=== PATIENT | female | born 1985 | race Caucasian/White ===

== ENCOUNTER → 2016-05-30 | Outpatient (CLI) | payer OTHER ==
[~2016-05-30] MED LIST: HYDR-5688 PO; OXYC-57 PO; PRED50TA PO
[2016-05-30 15:58] LABS: URINE APPEARANCE CLEAR (CLEAR); URINE BILIRUBIN NEG (NEG); URINE COLOR YELLOW; URINE NITRITE NEG (NEG); URINE PH 7.5 (4.5-7.5); URINE SPECIFIC GRAVITY 1.014 (1.000-1.030); UROBILINOGEN NEG (NEG)
[2016-05-30 16:07] LABS: MANUAL MICROSCOPIC REQUIRED? NO; REVIEW REQ? NO
[2016-05-30 16:39] LABS: BASO % 0.2 %; BASO ABS # 0.02 K/uL (0-0.2); COMPLETE YES; EOS % 3.2 %; HEMATOCRIT 38.8 % (37-47); IG% 0.1 %; LYMPH % 24.3 %; LYMPH ABS # 2.31 K/uL (1.2-3.4); MEAN CELL VOLUME 98.5 fL (80-100); MEAN CORPUSCULAR HEMOGLOBIN 33.2 pg (25-34); MEAN CORPUSCULAR HGB CONC 33.8 g/dl (32-36); MONO % 3.4 %; NEUT % 68.8 %; PLATELET COUNT 266 K/uL (130-400); RED BLOOD COUNT 3.94 M/uL (4.2-5.4)
[2016-05-30 16:48] LABS: BLOOD UREA NITROGEN 9 mg/dl (7-18); BUN/CREATININE RATIO 15.2 (10-20); CALCIUM 9.1 mg/dl (8.5-10.1); CARBON DIOXIDE 27 mmol/L (21-32); CHLORIDE 108 mmol/L (98-107); CREATININE 0.59 mg/dl (0.60-1.20); GLUCOSE 79 mg/dl (70-99); PHOSPHORUS 3.1 mg/dl (2.5-4.9); SODIUM 142 mmol/L (136-145)
== END | disposition home or self-care (01) ==
LOC: C.LAB1850 14:33
PROVIDERS: ATTEND Obstetrics & Gynecology
DX: G89.18 Other acute postprocedural pain (principal); R10.2 Pelvic and perineal pain

== ENCOUNTER → 2016-07-25 | Outpatient (CLI) | payer OTHER ==
[2016-07-25 12:21] LABS: BASO % 0.4 %; BASO ABS # 0.03 K/uL (0-0.2); COMPLETE YES; EOS % 1.9 %; HEMATOCRIT 40.6 % (37-47); IG% 0.1 %; LYMPH % 30.9 %; LYMPH ABS # 2.17 K/uL (1.2-3.4); MEAN CELL VOLUME 97.6 fL (80-100); MEAN CORPUSCULAR HEMOGLOBIN 33.2 pg (25-34); MEAN PLATELET VOLUME 11.5 fL (7.4-10.4); NEUT % 62.7 %; PLATELET COUNT 307 K/uL (130-400); RED BLOOD COUNT 4.16 M/uL (4.2-5.4); WHITE BLOOD COUNT 7.02 K/uL (4.8-10.8)
[2016-07-25 12:43] LABS: BLOOD UREA NITROGEN 17 mg/dl (7-18); BUN/CREATININE RATIO 28.2 (10-20); CARBON DIOXIDE 25 mmol/L (21-32); CHLORIDE 109 mmol/L (98-107); GLUCOSE 91 mg/dl (70-99); POTASSIUM 3.9 mmol/L (3.5-5.1); SODIUM 141 mmol/L (136-145)
[2016-07-25 12:46] LABS: ALKALINE PHOSPHATASE 66 U/L (45-117); ALT/SGPT 22 U/L (12-78); AST/SGOT 11 U/L (15-37); C-REACTIVE PROTEIN < 0.29 mg/dl (0-0.29)
[2016-07-25 18:21] LABS: URINE APPEARANCE CLEAR (CLEAR); URINE BILIRUBIN NEG (NEG); URINE COLOR YELLOW; URINE EPITHELIAL CELL AUTO >30 /lpf (0-5); URINE NITRITE NEG (NEG); URINE PH 5.5 (4.5-7.5); URINE SPECIFIC GRAVITY 1.025 (1.000-1.030); UROBILINOGEN NEG (NEG); ZZUR CULT IF INDIC CLEAN CATCH YES
[2016-07-25 18:27] LABS: MANUAL MICROSCOPIC REQUIRED? NO; REVIEW REQ? NO
== END | disposition home or self-care (01) ==
LOC: C.LABBFT 11:28
PROVIDERS: ATTEND Nurse Practitioner
DX: R10.84 Generalized abdominal pain (principal); R19.7 Diarrhea, unspecified

== ENCOUNTER → 2016-08-01 | Outpatient (CLI) | payer OTHER ==
--- NOTE | 2016-08-01 09:10 | DIAGNOSTIC IMAGING REPORT ---
ABDOMINAL ULTRASOUND, RIGHT UPPER QUADRANT HISTORY: Right upper quadrant abdominal pain.. COMPARISON: Abdomen and pelvis CT 06/24/2009. FINDINGS: Pancreas: The pancreas demonstrates a normal echotexture. Liver: Unremarkable. Gallbladder: No gallbladder wall thickening. No gallstones. CBD: 4 mm. Right kidney: No hydronephrosis. IMPRESSION: No significant abnormality identified within the right upper quadrant. Electronically signed by: Dejuan Andrade M.D. 08/01/2016 9:09 AM Dictated Date/Time: 08/01/2016 9:08 AM
== END | disposition home or self-care (01) ==
LOC: C.ULTR 08:41
PROVIDERS: ATTEND Nurse Practitioner
DX: R10.84 Generalized abdominal pain (principal)

== ENCOUNTER → 2016-08-14 | Outpatient (CLI) | payer OTHER ==
[~2016-08-14] MED LIST changes: +SINCALIDE IV ONE; +SODIUM CHLORIDE 0.9% IV ONE
--- NOTE | 2016-08-14 12:00 | DIAGNOSTIC IMAGING REPORT ---
NUCLEAR MEDICINE HEPATOBILIARY SCAN CLINICAL HISTORY: Abdominal pain and nausea. COMPARISON: Right upper quadrant ultrasound August 01, 2016 TECHNIQUE: 5.3 mCi of technetium 99m Choletec IV was injected at 10:35 AM on August 14, 2016. Immediately following injection, imaging of the abdomen was carried out for 60 minutes in the anterior projection. No Kinevac was administered as the gallbladder had largely emptied at 60 minutes. Therefore, no gallbladder ejection fraction was estimated however is within normal limits. FINDINGS: Hepatic uptake of radiotracer is prompt and homogeneous. Activity is first identified within the common bile duct and small bowel at 5 mins. Gallbladder activity is first noted at 15 minutes. Gallbladder emptying is within normal limits. IMPRESSION: 1. Normal hepatobiliary scan. 2. Gallbladder ejection fraction not estimated, as described above. However, gallbladder emptying is within normal limits. Electronically signed by: Peyman Ashley M.D. 08/14/2016 11:58 AM Dictated Date/Time: 08/14/2016 11:52 AM
== END | disposition home or self-care (01) ==
LOC: C.NUCL 10:21
PROVIDERS: ATTEND Nurse Practitioner
DX: R10.84 Generalized abdominal pain (principal); R11.0 Nausea

== ENCOUNTER 2016-10-27 17:12 | Emergency (ER) | payer OTHER ==
[~2016-10-27] VITALS: Ht 160 cm; Wt 58.2 kg
[~2016-10-27 17:12] MED LIST changes: -HYDR-5688 PO; -PRED50TA PO; -SINCALIDE IV ONE; -SODIUM CHLORIDE 0.9% IV ONE
[2016-10-27 17:24] VITALS: TEMP 36.6; Ht 160 cm; Wt 58.2 kg
[2016-10-27] MEDS ORDERED: KETOROLAC TROMETHAMINE 30 MG/ML VIAL IM STA (18:22)
[2016-10-27] MEDS ORDERED: HYDROCODONE/ACETAMOPHEN 5/325MG TAB PO STA (18:22)
[2016-10-27] MEDS ORDERED: HYDR-5688 PO (18:32)
[2016-10-27] MEDS ORDERED: PRED50TA PO (18:32)
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
[2016-10-27 19:32] VITALS: BP 132/76; PULSE 82; O2SAT 97
== END 2016-10-27 19:33 | disposition home or self-care (01) ==
LOC: C.EDB 17:13 → C.EDD 19:33
DX: G54.0 Brachial plexus disorders (principal); J45.909 Unspecified asthma, uncomplicated

== ENCOUNTER 2017-08-15 15:43 | Emergency (ER) | payer OTHER ==
[~2017-08-15] VITALS: Ht 162.6 cm; Wt 59.0 kg
[2017-08-15 15:48] VITALS: TEMP 36.7; Ht 162.6 cm; Wt 59.0 kg
[2017-08-15] MEDS ORDERED: KETOROLAC TROMETHAMINE 30 MG/ML VIAL IV STA (16:34)
[2017-08-15] MEDS ORDERED: ACET-1256 PO (16:49)
[2017-08-15] MEDS ORDERED: VNTHFA/IN INH (16:49)
[2017-08-15] MEDS ORDERED: IBUP-1050 PO (16:49)
[2017-08-15 17:07] LABS: BASO % 0.3 %; BASO ABS # 0.02 K/uL (0-0.2); EOS % 1.2 %; EOS ABS # 0.09 K/uL (0-0.5); HEMATOCRIT 39.6 % (37-47); HEMOGLOBIN 13.7 g/dL (12.0-16.0); IG# 0.01 K/uL (0.00-0.02); LYMPH % 34.3 %; LYMPH ABS # 2.55 K/uL (1.2-3.4); MEAN CELL VOLUME 96.1 fL (80-100); MEAN CORPUSCULAR HEMOGLOBIN 33.3 pg (25-34); MEAN CORPUSCULAR HGB CONC 34.6 g/dl (32-36); MEAN PLATELET VOLUME 11.1 fL (7.4-10.4); MONO % 3.9 %; MONO ABS # 0.29 K/uL (0.11-0.59); NEUT % 60.2 %; NEUT ABS # 4.47 K/uL (1.4-6.5); PLATELET COUNT 244 K/uL (130-400); RED CELL DISTRIBUTION WIDTH CV 13.7 % (11.5-14.5); RED CELL DISTRIBUTION WIDTH SD 47.8 fL (36.4-46.3); WHITE BLOOD COUNT 7.43 K/uL (4.8-10.8)
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
[2017-08-15 17:26] LABS: ALT/SGPT 23 U/L (12-78); AST/SGOT 14 U/L (15-37); BLOOD UREA NITROGEN 11 mg/dl (7-18); CARBON DIOXIDE 26 mmol/L (21-32); CREATININE 0.64 mg/dl (0.60-1.20); GLUCOSE 74 mg/dl (70-99); POTASSIUM 3.6 mmol/L (3.5-5.1); SODIUM 139 mmol/L (136-145)
[2017-08-15 17:29] LABS: ALKALINE PHOSPHATASE 63 U/L (45-117); TOTAL PROTEIN 7.7 gm/dl (6.4-8.2)
--- NOTE | 2017-08-15 17:40 | DIAGNOSTIC IMAGING REPORT ---
PELVIC COMPLETE NON OB CLINICAL HISTORY: 31 years-old Female presenting with eval ovarian cyst/torsion, pelvic pain, low back pain, G3, P3, history of partial hysterectomy June 01, 2016, no abnormal bleeding. TECHNIQUE: Real-time grayscale and color and spectral Doppler ultrasound imaging of the pelvis was performed using a transabdominal probe. COMPARISON: 03/07/2016. FINDINGS: Uterus: Surgically absent. Right adnexa: Right ovary normal. Right ovary measures 2.8 x 1 0.1, 0.5 cm. Normal color Doppler flow and arterial and venous waveforms within the ovarian parenchyma. Left adnexa: Left ovary normal. Left ovary measures 2.9 x 1.8 x 2.0 cm. Normal color Doppler flow and arterial and venous waveforms within the ovarian parenchyma. Other: No free fluid. IMPRESSION: No evidence of ovarian torsion. Electronically signed by: Omero Chun M.D. 08/15/2017 5:39 PM Dictated Date/Time: 08/15/2017 5:38 PM
[2017-08-15 18:53] VITALS: BP 121/63; PULSE 70; O2SAT 97
== END 2017-08-15 18:55 | disposition home or self-care (01) ==
LOC: C.EDB 15:44 → C.EDD 18:55
DX: M54.5 Low back pain (principal); R10.9 Unspecified abdominal pain; R21 Rash and other nonspecific skin eruption; Z90.711 Acquired absence of uterus with remaining cervical stump; F17.210 Nicotine dependence, cigarettes, uncomplicated; J45.909 Unspecified asthma, uncomplicated; Z87.442 Personal history of urinary calculi; Z88.8 Allergy status to other drugs, medicaments and biological substances

== ENCOUNTER → 2017-08-22 | Outpatient (CLI) | payer OTHER ==
[~2017-08-22] MED LIST changes: +ACET-1256 PO; +IBUP-1050 PO; +OPTIRAY 320 IV PRN; -OXYC-57 PO; +VNTHFA/IN INH
--- NOTE | 2017-08-22 18:11 | DIAGNOSTIC IMAGING REPORT ---
ABDOMEN AND PELVIS CT WITH IV AND ORAL CONTRAST CT DOSE: 251.94 mGy.cm HISTORY: R10.31 Abdominal pain, RLQ (right lower quadrant) TECHNIQUE: Multiaxial CT images of the abdomen and pelvis were performed following the use of intravenous and oral contrast. A dose lowering technique was utilized adhering to the principles of ALARA. COMPARISON STUDY: Abdomen and pelvis CT 06/24/2009. FINDINGS: The lung bases are clear. No pneumoperitoneum. No pneumatosis. No fractures within the visualized osseous structures. Tiny periumbilical fat-containing hernia. The liver, gallbladder, spleen, pancreas, and adrenal glands are unremarkable. No hydronephrosis. There are few bilateral subcentimeter renal hypodense lesions. These are too small to characterize. Statistically these represent cysts. No retroperitoneal lymphadenopathy. The bladder is now well-distended and therefore not well visualized. The uterus appears surgically absent. Normal ovaries. No pelvic free fluid. No bowel wall thickening or obstruction. Normal appendix. IMPRESSION: 1. No bowel wall thickening or obstruction. 2. Normal appendix. 3. No hydronephrosis. Electronically signed by: Dejuan Andrade M.D. 08/22/2017 6:10 PM Dictated Date/Time: 08/22/2017 6:02 PM
== END | disposition home or self-care (01) ==
LOC: C.CTS 17:37
PROVIDERS: ATTEND Internal Medicine
DX: R10.31 Right lower quadrant pain (principal)

== ENCOUNTER 2017-09-04 23:40 | Emergency (ER) | payer OTHER ==
[~2017-09-04] VITALS: Ht 162.6 cm; Wt 57.1 kg
[~2017-09-04 23:40] MED LIST changes: -OPTIRAY 320 IV PRN
[2017-09-04 23:42] VITALS: TEMP 36.9; Ht 162.6 cm; Wt 57.1 kg
[2017-09-04] MEDS ORDERED: KETOROLAC TROMETHAMINE 30 MG/ML VIAL IV STA (23:57)
[2017-09-04] MEDS ORDERED: SODIUM CHLORIDE 0.9% 1000ML 1,000 ML IV STA (23:57)
[2017-09-04] MEDS ORDERED: LORAZEPAM 2 MG/ML 1 ML VIAL IV STA (23:57)
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
[2017-09-05 00:44] LABS: BASO % 0.1 %; BASO ABS # 0.01 K/uL (0-0.2); EOS % 0.9 %; EOS ABS # 0.07 K/uL (0-0.5); HEMATOCRIT 39.4 % (37-47); HEMOGLOBIN 13.4 g/dL (12.0-16.0); IG# 0.01 K/uL (0.00-0.02); LYMPH % 12.8 %; LYMPH ABS # 0.96 K/uL (1.2-3.4); MEAN CELL VOLUME 96.6 fL (80-100); MEAN CORPUSCULAR HEMOGLOBIN 32.8 pg (25-34); MEAN PLATELET VOLUME 10.4 fL (7.4-10.4); MONO % 5.7 %; MONO ABS # 0.43 K/uL (0.11-0.59); NEUT % 80.4 %; NEUT ABS # 6.01 K/uL (1.4-6.5); PLATELET COUNT 282 K/uL (130-400); RED CELL DISTRIBUTION WIDTH CV 13.4 % (11.5-14.5); RED CELL DISTRIBUTION WIDTH SD 47.7 fL (36.4-46.3); WHITE BLOOD COUNT 7.49 K/uL (4.8-10.8)
[2017-09-05 01:14] LABS: ALT/SGPT 23 U/L (12-78); AST/SGOT 16 U/L (15-37); BLOOD UREA NITROGEN 19 mg/dl (7-18); CALCIUM 9.3 mg/dl (8.5-10.1); CARBON DIOXIDE 25 mmol/L (21-32); CREATININE 0.71 mg/dl (0.60-1.20); GLUCOSE 82 mg/dl (70-99); LIPASE 152 U/L (73-393); POTASSIUM 3.6 mmol/L (3.5-5.1); SODIUM 137 mmol/L (136-145)
[2017-09-05 01:19] LABS: ALKALINE PHOSPHATASE 81 U/L (45-117); TOTAL PROTEIN 8.4 gm/dl (6.4-8.2)
[2017-09-05 01:56] VITALS: BP 106/49; PULSE 80; O2SAT 95
[2017-09-05] MEDS ORDERED: FLEXERIL HOME PACK 10 MG VIAL PO ONE (02:00)
--- NOTE | 2017-09-05 08:53 | DIAGNOSTIC IMAGING REPORT ---
CHEST ONE VIEW PORTABLE HISTORY: Right lower chest pain COMPARISON: Chest 03/26/2014. FINDINGS: The lungs are clear. Cardiac silhouette is normal in size. No pleural effusions. No pneumothorax. IMPRESSION: No acute process. Electronically signed by: Dejuan Andrade M.D. 09/05/2017 7:22 AM Dictated Date/Time: 09/05/2017 7:21 AM
== END 2017-09-05 02:00 | disposition home or self-care (01) ==
LOC: C.EDB 23:41 → C.EDA 09-05 02:00
DX: R07.89 Other chest pain (principal); R10.84 Generalized abdominal pain; M54.2 Cervicalgia; J45.909 Unspecified asthma, uncomplicated; K08.409 Partial loss of teeth, unspecified cause, unspecified class; F17.200 Nicotine dependence, unspecified, uncomplicated; Z87.442 Personal history of urinary calculi

== ENCOUNTER 2022-06-02 06:32 | Inpatient (IN) ==
--- NOTE | 2022-06-02 07:42 | CT Scan Report ---
CT head/brain wo con CLINICAL HISTORY: seizure Technique: Contiguous axial CT images of the head were acquired from the base of the skull to the fidel ramiro without intravenous contrast administration. Images were viewed in brain[facility]. Automated dose lowering techniques and/or adjustment according to patient size were utilized for this exam. Comparison: None available at the time of this dictation. Findings: The ventricles, basal cisterns, and cerebral sulci are normal. There is no acute intracranial hemorrh age or evidence of acute territorial infarction. Neither mass effect, shift of the midline structures , nor abnormal extra-axial fluid collections are shown. Imaged portions of the paranasal sinuses and mastoid air cells are clear. The orbits appear normal. There are no acute fractures of the calvaria or scalp swelling. Impression: No acute intracranial hemorrhage, no evidence of acute territorial infarction or other acute intracra nial disease process. ACT 112: Negative or not required by law. Electronically signed by: Daniel Dalton M.D. 06/02/2022 7:40 AM
--- NOTE | 2022-06-02 07:42 | Emergency Department Note ---
History of Present Illness General Chief complaint: Seizure Stated complaint: POSSIBLE SEIZURE Time Seen by Provider: 06/02/22 07:33 Source: patient Mode of arrival: ambulatory Limitations: no limitations History of Present Illness Patient arrived via ems from home for seizure like activity around 0530 this morning. She recalls going to bed last night and awaking to EMS crew after the event. She denies a seizure history and states no incontinence, vomiting or injury to tongue during event. She states she has a right frontal headache 10/10 in pain at this time with nausea, no injury otherwise. She is currently taking Suboxone for previous drug addiction and reports no change in medications, uses marijuana recreationally. Patient denies any history of seizures. She denies any recent illness/fevers. Additional history obtained from the patient's boyfriend, who states that they went to bed as usual last night. He woke up around 4 AM and went back to sleep, notes that the patient got up to use the restroom at that time. He states that around 530, he heard a crash and noted that the patient had fallen out of bed. He states that she had some "foaming at the mouth" and jerking movements of her arms and legs. After this, she was agitated and combative with EMS. Home Medications Medication Instructions Recorded Confirmed Type buprenorphine 8 mg-naloxone 2 mg 1 tab sublingual TID 07/14/20 06/02/22 History sublingual tablet escitalopram oxalate 20 mg tablet 20 mg PO DAILY #30 tabs 01/23/22 06/02/22 Rx albuterol sulfate 90 mcg/actuation 2 puff inhalation Q6H PRN 04/02/22 06/02/22 Rx aerosol inhaler (Ventolin HFA) Shortness Of Breath Or Wheezing #8.5 grams omeprazole 20 mg capsule,delayed 20 mg PO BID 06/02/22 History release Allergies Allergy/AdvReac Type Severity Reaction Status Date / Time tramadol AdvReac Intermediate Nausea/Vomi Verified 01/23/22 13:42 ting Past Med/Surg History Medical History Abdominal pain Asthma using PRN inh daily Chronic back pain COVID-19 vaccine second dose declined pt states that "people scared me about the 2nd shot so I never got the second one" Depression with anxiety GERD (gastroesophageal reflux disease) Hyperlipidemia Kidney stones hx Learning disability Migraine Surgical History History of bilateral tubal ligation History of esophagogastroduodenoscopy (EGD) History of hysterectomy History of tooth extraction all top teeth/most lower teeth History of umbilical hernia repair Family History Other Endometriosis No family history of adverse response to anesthesia Social History Smoking Status: Current every day smoker Tobacco Type: Cigarettes Cigarettes Per Day: 1/2 ppd; Second Hand Exposure: No; Hx Alcohol Use: Yes Hx Substance Use: Yes Last Used Substance Other:: addicted to percocet (street)-went into clinic now on suboxone Preferred Language: German Communication Ability: Effective 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 Required: No Beliefs That Will Affect Care: None Current Living Situation: Alone Current Living Situation Comment: lives with her children Feels Safe at Home: Yes Safety Concerns: Feels Safe At This Time caffeine: Yes Dental Care, Regularly: No Physical Activity Frequency: Daily Seatbelt Use: always Sunscreen Use: No Assistive Devices: None, Denture - Upper and Denture - Lower Review of Systems A total of 10 systems reviewed and were otherwise negative Physical Exam Vital Signs Vital Signs - 24 hr 06/02/22 06:40 06/02/22 07:08 06/02/22 08:01 Temperature 36.8 C Temperature Source Oral Pulse Rate 64 Pulse Rate [Right Finger] 64 72 Pulse Rate from SpO2 Sensor Pulse Rhythm [Right Finger] Regular Regular Respiratory Rate 20 18 14 Respiratory Effort / Characteristics Non-Labored Spontaneous Respiratory Depth Normal Normal Respiratory Pattern Regular Blood Pressure 109/76 Blood Pressure [Left Arm] 118/66 106/55 L Blood Pressure Mean 87 Blood Pressure Mean [Left Arm] 83 72 Blood Pressure Position [Left Arm] Lying Lying Pulse Oximetry 96 94 98 Oxygen Delivery Method Room Air Room Air Room Air Sepsis Recent Fever Within 48 Hours No Sepsis New/Unexplained Change in Mental Status No Sepsis Action Taken by Nursing No Action Required 06/02/22 11:14 06/02/22 08:30 06/02/22 08:30 Temperature Temperature Source Pulse Rate 55 L Pulse Rate [Right Finger] 77 Pulse Rate from SpO2 Sensor Pulse Rhythm [Right Finger] Respiratory Rate 14 Respiratory Effort / Characteristics Non-Labored Spontaneous Respiratory Depth Normal Respiratory Pattern Regular Blood Pressure 95/57 L Blood Pressure [Left Arm] 127/87 Blood Pressure Mean 69 Blood Pressure Mean [Left Arm] 100 Blood Pressure Position [Left Arm] Lying Pulse Oximetry 99 Oxygen Delivery Method Room Air Sepsis Recent Fever Within 48 Hours Sepsis New/Unexplained Change in Mental Status Sepsis Action Taken by Nursing 06/02/22 09:00 06/02/22 09:00 06/02/22 09:30 Temperature Temperature Source Pulse Rate 59 L Pulse Rate [Right Finger] Pulse Rate from SpO2 Sensor 59 L Pulse Rhythm [Right Finger] Respiratory Rate 19 Respiratory Effort / Characteristics Respiratory Depth Respiratory Pattern Blood Pressure 93/67 L 98/51 L Blood Pressure [Left Arm] Blood Pressure Mean 75 66 Blood Pressure Mean [Left Arm] Blood Pressure Position [Left Arm] Pulse Oximetry 97 Oxygen Delivery Method Sepsis Recent Fever Within 48 Hours Sepsis New/Unexplained Change in Mental Status Sepsis Action Taken by Nursing 06/02/22 09:30 06/02/22 10:00 06/02/22 10:00 Temperature Temperature Source Pulse Rate 54 L 54 L Pulse Rate [Right Finger] Pulse Rate from SpO2 Sensor 54 L 54 L Pulse Rhythm [Right Finger] Respiratory Rate 17 14 Respiratory Effort / Characteristics Respiratory Depth Respiratory Pattern Blood Pressure 105/48 L Blood Pressure [Left Arm] Blood Pressure Mean 67 Blood Pressure Mean [Left Arm] Blood Pressure Position [Left Arm] Pulse Oximetry 98 98 Oxygen Delivery Method Room Air Room Air Sepsis Recent Fever Within 48 Hours Sepsis New/Unexplained Change in Mental Status Sepsis Action Taken by Nursing 06/02/22 10:30 06/02/22 10:30 06/02/22 10:58 Temperature Temperature Source Pulse Rate 56 L 97 H Pulse Rate [Right Finger] Pulse Rate from SpO2 Sensor 57 L Pulse Rhythm [Right Finger] Respiratory Rate 12 28 H Respiratory Effort / Characteristics Respiratory Depth Respiratory Pattern Blood Pressure 110/55 L Blood Pressure [Left Arm] Blood Pressure Mean 73 Blood Pressure Mean [Left Arm] Blood Pressure Position [Left Arm] Pulse Oximetry 97 Oxygen Delivery Method Room Air Sepsis Recent Fever Within 48 Hours Sepsis New/Unexplained Change in Mental Status Sepsis Action Taken by Nursing 06/02/22 11:05 06/02/22 12:05 06/02/22 12:30 Temperature Temperature Source Pulse Rate Pulse Rate [Right Finger] 73 58 L Pulse Rate from SpO2 Sensor Pulse Rhythm [Right Finger] Respiratory Rate 18 16 Respiratory Effort / Characteristics Non-Labored Spontaneous Respiratory Depth Normal Normal Respiratory Pattern Regular Blood Pressure 127/87 Blood Pressure [Left Arm] 129/65 118/54 L Blood Pressure Mean 100 Blood Pressure Mean [Left Arm] 86 75 Blood Pressure Position [Left Arm] Lying Pulse Oximetry 98 100 Oxygen Delivery Method Room Air Room Air Sepsis Recent Fever Within 48 Hours Sepsis New/Unexplained Change in Mental Status Sepsis Action Taken by Nursing VITALS: Vitals are noted on the nurse's note and reviewed by myself. GENERAL: This is a 36-year-old female, in no acute distress, nondiaphoretic, well-developed well-nourished. SKIN: The skin was without rashes, erythema, edema, or bruising. HEAD: Normocephalic atraumatic. EARS: External auditory canals clear, tympanic membranes pearly mora without erythema or effusion bilaterally. EYES: Pupils equal round and reactive to light and accommodation. Extraocular movements intact. NOSE: Patent, turbinates without inflammation or discharge. No sinus tenderness. MOUTH: Mucous membranes moist. No injury to the tongue. NECK: Supple without nuchal rigidity. HEART: Regular rate and rhythm without murmurs gallops or rubs. LUNGS: Clear to auscultation bilaterally without wheezes, rales or rhonchi. ABDOMEN: Positive bowel sounds x 4. Soft, nontender. MUSCULOSKELETAL: Full range of motion throughout. Strength 5/5 throughout. NEURO: Patient was alert and oriented to person place and time. No focal neurological deficits. Course Administered Medications Discontinued Medications Acetaminophen (Acetaminophen 500 Mg Tab) 1,000 mg PO NOW STA Stop: 06/02/22 08:15 Last Admin: 06/02/22 08:18 Dose: 1,000 mg Documented By: ROXI Sodium Chloride (Nss 1000ml) 1,000 mls @ 999 mls/hr IV .Q1H1M ONE Stop: 06/02/22 12:52 Last Infusion: 06/02/22 14:02 Dose: 0 mls/hr Documented By: Admin: 06/02/22 12:08 Dose: 999 mls/hr Documented By: ROXI Levetiracetam 1,000 mg/ Sodium (Chloride) 110 mls @ 440 mls/hr IV NOW STA Stop: 06/02/22 12:37 Last Infusion: 06/02/22 13:15 Dose: 0 mls/hr Documented By: Admin: 06/02/22 12:54 Dose: 440 mls/hr Documented By: ROXI Lorazepam (Lorazepam 2 Mg/1 Ml Vial) Confirm Administered Dose 2 mg .ROUTE .STK- MED ONE Stop: 06/02/22 11:01 Last Admin: 06/02/22 11:09 Dose: 2 mg Documented By: ROXI Medical Decision Making Differential Diagnosis Epilepsy, infection, hypoglycemia, electrolyte abnormalities, cardiac sources, intracerebral event, trauma, toxicologic, neurologic, syncope, as well as other pathologies. Home Medications Current Medication List: was personally reviewed by me Laboratory Data Attestation: I reviewed the patient's lab results. 06/02/22 06:45 06/02/22 06:45 Lab Results 06/02/22 06/02/22 06/02/22 Range/Units 06:45 06:45 09:18 WBC 8.29 (4.8-10.8) K/ul RBC 4.19 (3.93-5.22) M/uL Hgb 12.8 (12.0-16.0) g/dl Hct 38.0 (34.1-44.9) % MCV 90.7 (80.0-100.0) fL MCH 30.5 (25.0-34.0) pg MCHC 33.7 (32.0-36.0) g/dL RDW Std Deviation 48.8 H (36.4-46.3) fL RDW Coeff of Raimundo 14.7 H (11.5-14.5) % Plt Count 272 (130-400) K/uL MPV 12.4 H (9.4-12.3) fL Immature Gran % (Auto) 0.2 % Neut % (Auto) 58.9 % Lymph % (Auto) 33.1 % [place] % (Auto) 4.5 % Eos % (Auto) 2.8 % Baso % (Auto) 0.5 % Neut # (Auto) 4.89 (1.4-6.5) K/uL Lymph # (Auto) 2.74 (1.2-3.4) K/uL [place] # (Auto) 0.37 (0.24-0.82) K/uL Eos # (Auto) 0.23 (0-0.50) K/uL Baso # (Auto) 0.04 (0-0.2) K/uL Immature Gran # (Auto) 0.02 (0.00-0.02) K/uL Sodium 138 (136-145) mmol/L Potassium 4.0 (3.5-5.1) mmol/L Chloride 110 H (98-107) mmol/L Carbon Dioxide 24 (21-32) mmol/L Anion Gap 4 (3-11) BUN 11 (6-23) mg/dl Creatinine 0.53 L (0.6-1.2) mg/dl Est Cr Clr Drug Dosing Not Reportable Est GFR ( Amer) 139.6 ml/min Est GFR (Non-Af Amer) 120.4 ml/min BUN/Creatinine Ratio 20.8 H (10-20) Glucose 91 (70-99(Fasting)) mg/dl Calcium 8.8 (8.5-10.1) mg/dl Magnesium 2.0 (1.7-2.4) mg/dl Total Bilirubin 0.4 (0.2-1.0) mg/dl AST 17 (13-39) U/L ALT 12 (7-52) U/L Alkaline Phosphatase 56 (34-104) U/L Total Protein 6.6 (6.0-8.3) gm/dl Albumin 4.1 (3.4-5.0) gm/dl Globulin 2.5 (2.5-4.0) gm/dl Albumin/Globulin Ratio 1.6 (0.9-2) POC Ur Test (NEG) Urine Opiates Screen Neg (Neg) Ur Methadone, Qual Neg (Neg) Urine Barbiturates Neg (Neg) Ur Phencyclidine (PCP) Neg (Neg) U Amphetamin/Meth Scrn Neg (Neg) MDMA (Ecstasy) Screen Neg (Neg) U Benzodiazepines Scrn Neg (Neg) Ur Cocaine Metabolite Neg (Neg) U Marijuana (THC) Screen Pos H (Neg) 06/02/22 Range/Units 09:27 WBC (4.8-10.8) K/ul RBC (3.93-5.22) M/uL Hgb (12.0-16.0) g/dl Hct (34.1-44.9) % MCV (80.0-100.0) fL MCH (25.0-34.0) pg MCHC (32.0-36.0) g/dL RDW Std Deviation (36.4-46.3) fL RDW Coeff of Raimundo (11.5-14.5) % Plt Count (130-400) K/uL MPV (9.4-12.3) fL Immature Gran % (Auto) % Neut % (Auto) % Lymph % (Auto) % [place] % (Auto) % Eos % (Auto) % Baso % (Auto) % Neut # (Auto) (1.4-6.5) K/uL Lymph # (Auto) (1.2-3.4) K/uL [place] # (Auto) (0.24-0.82) K/uL Eos # (Auto) (0-0.50) K/uL Baso # (Auto) (0-0.2) K/uL Immature Gran # (Auto) (0.00-0.02) K/uL Sodium (136-145) mmol/L Potassium (3.5-5.1) mmol/L Chloride (98-107) mmol/L Carbon Dioxide (21-32) mmol/L Anion Gap (3-11) BUN (6-23) mg/dl Creatinine (0.6-1.2) mg/dl Est Cr Clr Drug Dosing Est GFR ( Amer) ml/min Est GFR (Non-Af Amer) ml/min BUN/Creatinine Ratio (10-20) Glucose (70-99(Fasting)) mg/dl Calcium (8.5-10.1) mg/dl Magnesium (1.7-2.4) mg/dl Total Bilirubin (0.2-1.0) mg/dl AST (13-39) U/L ALT (7-52) U/L Alkaline Phosphatase (34-104) U/L Total Protein (6.0-8.3) gm/dl Albumin (3.4-5.0) gm/dl Globulin (2.5-4.0) gm/dl Albumin/Globulin Ratio (0.9-2) POC Ur Test NEG (NEG) Urine Opiates Screen (Neg) Ur Methadone, Qual (Neg) Urine Barbiturates (Neg) Ur Phencyclidine (PCP) (Neg) U Amphetamin/Meth Scrn (Neg) MDMA (Ecstasy) Screen (Neg) U Benzodiazepines Scrn (Neg) Ur Cocaine Metabolite (Neg) U Marijuana (THC) Screen (Neg) Imaging Data Attestation: I personally reviewed and interpreted this imaging study as follows: Radiologist's Impression: Head CT 06/02/22 06:35 CT head/brain wo con CLINICAL HISTORY: seizure Technique: Contiguous axial CT images of the head were acquired from the base of the skull to the vertex without intravenous contrast administration. Images were viewed in brain, subdural and bone windows. Automated dose lowering techniques and/or adjustment according to patient size were utilized for this exam. Comparison: None available at the time of this dictation. Findings: The ventricles, basal cisterns, and cerebral sulci are normal. There is no acute intracranial hemorrhage or evidence of acute territorial infarction. Neither mass effect, shift of the midline structures, nor abnormal extra-axial fluid collections are shown. Imaged portions of the paranasal sinuses and mastoid air cells are clear. The orbits appear normal. There are no acute fractures of the calvaria or scalp swelling. Impression: No acute intracranial hemorrhage, no evidence of acute territorial infarction or other acute intracranial disease process. ACT 112: Negative or not required by law. Electronically signed by: Daniel Dalton M.D. 06/02/2022 7:40 AM ECG Data Attestation: I personally reviewed and interpreted this ECG as follows: Indication: + toxicologic Rate (beats per minute): 65 Rhythm: + normal sinus ECG Intervals/blocks: + Normal QRS ECG [place]: + Normal ECG ST segments: + Normal ST segments Change: no significant change Head Trauma GCS Score: 15 MDM Narrative Continuous telemetry monitor: Order was placed for continuous telemetry monitor. Patient was placed on the telemetry monitor. Patient was noted to be in normal sinus rhythm at an initial rate of 70 bpm. The patient is a 36-year-old female who presents today for evaluation of a seizure. Labs revealed no leukocytosis, anemia or concerning electrolyte abnormalities. UDS was positive for marijuana, otherwise negative. CT of the head was unremarkable. EKG was unremarkable. Patient reportedly was postictal and combative for EMS, however was alert on arrival to the ER. Patient observed for several hours and did have a subsequent seizure during her emergency department stay. Patient examined immediately afterward and did appear to be postictal and combative. She was given Ativan for seizure. She was given a dose of IV Keppra. Patient continued to be drowsy for about an hour following this. At that time, decision was made to admit the patient to the hospital service for further work-up. Case was discussed with the [facility] hospitalist service. Impression & Plan Seizure Discharge Plan Visit Data Chief Complaint: Seizure Stated Complaint: POSSIBLE SEIZURE ED Provider: Lesa Akers ED Midlevel Provider: Yara Coello Discharge Problem: Seizure Patient Disposition: Admitted As Inpatient Discharge Instructions Interventions: ED Discharge Assessment Last Done: 06/02/22 14:00
[2022-06-02 07:46] LABS: Basophils # (auto) 0.04 K/uL (0-0.2); Basophils % (auto) 0.5 %; Eosinophils # (auto) 0.23 K/uL (0-0.50); Eosinophils % (auto) 2.8 %; Hemoglobin 12.8 g/dl (12.0-16.0); Immature Granulocytes # (auto) 0.02 K/uL (0.00-0.02); Immature Granulocytes % (auto) 0.2 %; Lymphocytes # (auto) 2.74 K/uL (1.2-3.4); Lymphocytes % (auto) 33.1 %; Mean Corpuscular Hemoglobin 30.5 pg (25.0-34.0); Mean Corpuscular Hgb Conc 33.7 g/dL (32.0-36.0); Mean Corpuscular Volume 90.7 fL (80.0-100.0); Mean Platelet Volume 12.4 fL (9.4-12.3); Monocytes # (auto) 0.37 K/uL (0.24-0.82); Monocytes % (auto) 4.5 %; Neutrophils # (auto) 4.89 K/uL (1.4-6.5); Neutrophils % (auto) 58.9 %; Platelet Count 272 K/uL (130-400); RDW Coefficient of Variation 14.7 % (11.5-14.5); RDW Standard Deviation 48.8 fL (36.4-46.3); Red Blood Count 4.19 M/uL (3.93-5.22); White Blood Count 8.29 K/ul (4.8-10.8)
[2022-06-02 07:59] LABS: Albumin Level 4.1 gm/dl (3.4-5.0); Anion Gap 4 (3-11); Bilirubin,Total 0.4 mg/dl (0.2-1.0); Calcium 8.8 mg/dl (8.5-10.1); Carbon Dioxide 24 mmol/L (21-32); Chloride 110 mmol/L (98-107); Sodium 138 mmol/L (136-145)
[2022-06-02 08:06] LABS: Alanine Aminotransferase 12 U/L (7-52); Albumin Globulin Ratio 1.6 (0.9-2); Alkaline Phosphatase 56 U/L (34-104); Aspartate Aminotransferase 17 U/L (13-39); BUN Creatinine Ratio 20.8 (10-20); Blood Urea Nitrogen 11 mg/dl (6-23); Est GFR (African American) 139.6 ml/min; Est GFR (Non-African American) 120.4 ml/min; Globulin 2.5 gm/dl (2.5-4.0); Glucose 91 mg/dl (70-99(Fasting)); Total Protein 6.6 gm/dl (6.0-8.3)
[2022-06-02] MEDS ORDERED: ACETAMINOPHEN 500 MG TAB PO STA (08:14)
[2022-06-02 10:07] LABS: Amphetamines+Metham, Urine Neg (Neg); Barbiturates, Urine Neg (Neg); Benzodiazepine, Urine Neg (Neg); Cocaine, Urine Neg (Neg); MDMA (Ecstacy), Urine Neg (Neg); Methadone, Urine Neg (Neg); Opiate, Urine Neg (Neg); Phencyclidine, Urine Neg (Neg)
[2022-06-02] MEDS ORDERED: LORazepam 2 MG/1 ML VIAL ONE (11:00)
--- NOTE | 2022-06-02 11:18 | Emergency Department Note ---
ED Visit Note I was consulted by the Advanced Practice Provider. I saw the patient personally and performed a substantive portion of the visit. This includes aspects of the HPI, MDM, diagnostic interpretations, and disposition/plan. 1102: I was called urgently to the room as nursing staff was concerned patient had a recurrent seizure and was now agitated and postictal. Patient cannot be redirected or de-escalated and was confused not answering questions or following commands. I gave verbal order for the nurse to pull Ativan for the patient and she was given 2 mg of Ativan through the IV. 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 Patient did appear to be incontinent of urine. .
[2022-06-02] MEDS ORDERED: SODIUM CHLORIDE 0.9% 1000ML 1,000 ML IV ONE (11:52)
[2022-06-02] MEDS ORDERED: levETIRAcetam 1,000 MG in 0.9 % SODIUM CHLORIDE 100 ML IV STA (12:23)
--- NOTE | 2022-06-02 12:28 | History & Physical Report ---
Date of Service June 02, 2022 Assessment & Plan (1) Seizure: Plan: 46-year-old female the past medical history of migraine, medical marijuana use, tobacco use, anxiety/depression, Lexapro, Suboxone treatment who presented with 1 seizure at home and a second seizure observed while in the ER with tonic/clonic activity. Seizure x2, new CThead normal 1 observed seizure in the ER aborted with lorazepam 2 mg Loaded with Keppra 1 g Seizure protocol MRI pending Ativan on-call for seizure, seizure precautions Provoking factors include medical marijuana, denies Wellbutrin use. Is on Lexapro Neurology consulted Depression/anxiety Continue Lexapro 20 mg. This was restarted 01/2022 Substance use disorder Past history of chronic use of Percocet/Vicodin Currently treated at [facility], on Suboxone Continue Suboxone 3 times daily Hyperlipidemia Followed as outpatient, no acute management History of wheezing 1 pack/day per outpatient record review, no wheezing on intake exam Albuterol as needed if needed No signs of acute COPD/exacerbation DVT prophylaxis: SCDs, Lovenox in a.m. Diet: N.p.o. while sedated/somnolent, may advance to regular when alert. Aspiration and seizure precautions Disposition: PCU for seizure x2 CODE STATUS: Full code (2) Depression with anxiety: (3) Smoking addiction: (4) Hyperlipidemia: History of Present Illness Primary Care Provider: Matthew Bolivar MD Page Zendejas is a 36-year-old female with a past medical history of cervical intraepithelial neoplasia 2, depression/anxiety, migraine, history of substance abuse on Suboxone, learning disability, tobacco use, hyperlipidemia who presented for concerns of seizure. While in the ER she had a observed seizure with postictal somnolence, was treated with Ativan and subsequently loaded with Keppra. Page is seen at the bedside. She is somnolent but awakens easily answers questions before falling back asleep. Denies pain. Reports she is never had a seizure before. Endorses that she takes medical marijuana for anxiety and pain, denies pain at bedside. She obtains her marijuana from a dispensary and uses a smoked formulation. She also takes Lexapro which she did take this morning. She does not remember having a seizure this morning or in the ER. She denies weakness numbness/tingling and denies headache. 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 She denies fevers, chills, sweats, recent illness, cough, nausea, vomiting. Denies family history of seizure, exam somewhat limited due to somnolence. Reports she does not want anyone called for collateral history. Denies recreational drug use or other substance use. Does not use alcohol, smokes cigarettes and reports 1 pack lasts her "a while "but does not quantify in days. Medical History: Reviewed Medications: Reviewed Surgical History: Reviewed Allergies: Reviewed Social History: Medical marijuana, current smoker, does not use alcohol. Denies recreational drug use, is currently on Suboxone 3 times daily Code Status: Full code Allergies Allergy/AdvReac Type Severity Reaction Status Date / Time tramadol AdvReac Intermediate Nausea/Vomi Verified 01/23/22 13:42 ting Home Medications Medication Instructions Recorded Confirmed Type buprenorphine 8 mg-naloxone 2 mg 1 tab sublingual TID 07/14/20 09/20/21 History sublingual tablet escitalopram oxalate 20 mg tablet 20 mg PO DAILY #30 tabs 01/23/22 01/23/22 Rx omeprazole 20 mg capsule,delayed See Rx Instructions .Route 02/26/22 Rx release .COMPLEX #60 caps albuterol sulfate 90 mcg/actuation 2 puff inhalation Q6H PRN 04/02/22 Rx aerosol inhaler (Ventolin HFA) Shortness Of Breath Or Wheezing #8.5 grams Past Med/Surg History Medical History (Updated 06/02/22 @ 12:41 by Omero Pizano MD) Abdominal pain Asthma using PRN inh daily Chronic back pain COVID-19 vaccine second dose declined pt states that "people scared me about the 2nd shot so I never got the second one" Depression with anxiety GERD (gastroesophageal reflux disease) Hyperlipidemia Kidney stones hx Learning disability Migraine Surgical History History of bilateral tubal ligation History of esophagogastroduodenoscopy (EGD) History of hysterectomy History of tooth extraction all top teeth/most lower teeth History of umbilical hernia repair Family History Other Endometriosis No family history of adverse response to anesthesia Social History Smoking Status: Current every day smoker Tobacco Type: Cigarettes Cigarettes Per Day: 1/2 ppd; Second Hand Exposure: No; Hx Alcohol Use: Yes Hx Substance Use: Yes (quit 2 years ago) Last Used Substance Other:: addicted to percocet (street)-went into clinic now on suboxone Preferred Language: Dominican Communication Ability: Effective Billboard Erector Required: No Beliefs That Will Affect Care: None Current Living Situation: Alone Current Living Situation Comment: lives with her children Feels Safe at Home: Yes caffeine: Yes Dental Care, Regularly: No Physical Activity Frequency: Daily Seatbelt Use: always Sunscreen Use: No Assistive Devices: None, Denture - Upper and Denture - Lower Review of Systems Review of Systems: All systems reviewed & are unremarkable except as noted in HPI & below Physical Exam Physical Exam: General: Somnolent but awakens easily before falling back asleep. Oriented to name, place, and year. No acute distress HEENT: Atraumatic, normocephalic. Vision/hearing grossly intact. Pupils equal and reactive to light. No tongue lesions/tongue biting. Tongue piercing is pre sent, no surrounding trauma. Pulm: CTAB A&P. -wheezes, -rales, -rhonchi. Symmetrical chest rise. No increased work of breathing. No respiratory distress. Cardiac: RRR, -mrg. Radial pulses intact and symmetrical. Abdominal: Nontender, nondistended, soft. BS present. 5/5 elbow flexion, dehorner strength, finger flexion/extension, interosseus 5/5 elbow flexion, dehorner strength, finger flexion/extension, interosseus RLE: 5/5 to hip flexion while sitting in bed, ankle dorsiflexion/plantarflexion LLE: 5/5 to hip flexion while sitting in bed, ankle dorsiflexion/plantarflexion Sensation intact to soft touch in feet and hands bilaterally without asymmetry. Results & Data Results & Data ([facility]) Vital Signs (Past 12 Hours) Vital Signs Temp Pulse Pulse Resp BP BP Pulse Ox 06/02/22 12:05 73 18 129/65 98 06/02/22 11:05 127/87 06/02/22 10:58 97 H 28 H 06/02/22 10:30 56 L 12 97 06/02/22 10:30 110/55 L 06/02/22 10:00 54 L 14 98 06/02/22 10:00 105/48 L 06/02/22 09:30 54 L 17 98 06/02/22 09:30 98/51 L 06/02/22 09:00 59 L 19 97 06/02/22 09:00 93/67 L 06/02/22 08:30 55 L 14 06/02/22 08:30 95/57 L 06/02/22 11:14 77 127/87 99 06/02/22 08:01 72 14 106/55 L 98 06/02/22 07:08 64 18 118/66 94 06/02/22 06:40 36.8 C 64 20 109/76 96 O2 Del Method 06/02/22 12:05 Room Air 06/02/22 11:05 06/02/22 10:58 06/02/22 10:30 Room Air 06/02/22 10:30 06/02/22 10:00 Room Air 06/02/22 10:00 06/02/22 09:30 Room Air 06/02/22 09:30 06/02/22 09:00 06/02/22 09:00 06/02/22 08:30 06/02/22 08:30 06/02/22 11:14 Room Air 06/02/22 08:01 Room Air 06/02/22 07:08 Room Air 06/02/22 06:40 Room Air PG Care Time/CCT Total # of Minutes Spent Total Time Spent with Patient: Total time spent is greater than 50% in coordination of care (as documented) at patient's floor/unit and/or counseling patient: Coding Level of Care Code 56202 INT INP/OBS CARE 2/55MIN Diagnoses Seizure R56.9 Depression with anxiety F41.8 Smoking addiction F17.200 Hyperlipidemia E78.5
[2022-06-02] MEDS ORDERED: ACETAMINOPHEN 325 MG TAB PO PRN (14:18)
[2022-06-02] MEDS ORDERED: LORazepam 2 MG/1 ML VIAL IV PRN (14:18)
[2022-06-02] MEDS ORDERED: ALBUTEROL HFA 8 GM INHALER INH PRN (14:18)
--- NOTE | 2022-06-02 15:30 | Electrocardiogram Report ---
Test Reason : Blood Pressure : / mmHG Vent. Rate : 065 BPM Atrial Rate : 065 BPM P-R Int : 142 ms QRS Dur : 084 ms QT Int : 418 ms P-R-T Axes : 070 073 058 degrees QTc Int : 434 ms Normal sinus rhythm Normal ECG When compared with ECG of 05-SEP-2017 00:26, No significant change was found Confirmed by Benedicto Ware ([id number]) on 06/02/2022 3:30:11 PM Referred By: REFERRED SELF Confirmed By:Benedicto Ware
[2022-06-02] MEDS: BUPRENORPHINE/NALOXONE 8/2 MG TAB SL SCH ×2 (16:21→22:07)
[2022-06-02] MEDS: levETIRAcetam 500 MG TAB PO SCH (22:08)
--- NOTE | 2022-06-03 07:47 | Hospitalist Progress Note ---
Date of Service June 03, 2022 Assessment & Plan (1) Seizure: Plan: 36-year-old female the past medical history of migraine, medical marijuana use, tobacco use, anxiety/depression, Lexapro, Suboxone treatment who presented with 1 seizure at home and a second seizure observed while in the ER with tonic/clonic activity. Seizure x2, new CThead normal 1 observed seizure in the ER aborted with lorazepam 2 mg Loaded with Keppra 1 g Seizure protocol MRI pending Ativan on-call for seizure, seizure precautions Provoking factors include medical marijuana, denies Wellbutrin use. Is on Lexapro Neurology consulted Depression/anxiety Continue Lexapro 20 mg. This was restarted 01/2022 Substance use disorder Past history of chronic use of Percocet/Vicodin Currently treated at [facility], on Suboxone Continue Suboxone 3 times daily -thc seen in tox screen Hyperlipidemia Followed as outpatient, no acute management History of wheezing 1 pack/day per outpatient record review, no wheezing on intake exam Albuterol as needed if needed No signs of acute COPD/exacerbation DVT prophylaxis: SCDs, Lovenox in a.m. CODE STATUS: Full code (2) Depression with anxiety: (3) Smoking addiction: (4) Hyperlipidemia: Admission and Anticipated Discharge Date Admission Date: June 02, 2022 Results & Data Results & Data ([facility]) Vital Signs (Past 12 Hours) Vital Signs Temp Pulse Pulse Resp BP BP Pulse Ox 06/03/22 02:48 98.4 F 55 L 18 110/61 96 06/02/22 22:02 54 L 06/02/22 22:09 97.5 F L 58 L 16 114/68 94 06/02/22 20:03 97.9 F 57 L 16 100/65 96 O2 Del Method 06/03/22 02:48 Room Air 06/02/22 22:02 06/02/22 22:09 Room Air 06/02/22 20:03 PG Care Time/CCT Total # of Minutes Spent Total Time Spent with Patient: Total time spent is greater than 50% in coordination of care (as documented) at patient's floor/unit and/or counseling patient: Coding Diagnoses Seizure R56.9 Depression with anxiety F41.8 Smoking addiction F17.200 Hyperlipidemia E78.5
[2022-06-03] MEDS: levETIRAcetam 500 MG TAB PO SCH (08:20)
[2022-06-03] MEDS: BUPRENORPHINE/NALOXONE 8/2 MG TAB SL SCH (08:22)
[2022-06-03] MEDS ORDERED: ESCITALOPRAM OXALATE 20 MG TAB PO SCH (09:00)
[2022-06-03] MEDS ORDERED: ENOXAPARIN INJ 40 MG/0.4 ML SYR SQ SCH (09:00)
--- NOTE | 2022-06-03 11:27 | Neurology Consultation ---
Date of Consultation June 03, 2022 Assessment & Plan (1) Seizure: Plan NEUROLOGY CONSULTATION Assessment & Plan: Impression: pt with seizure event and doing well currently. it is likely her use of suboxone and marijuana contributed to the event. at this point, pt can finish up seizure work up as outpt. pt mainly kept inpt for monitoring. Recommendations: -EEG can be done as outpt continue keppra as now pt has pending MRI brain, again this is routine and can be done as outpt if pt wants to go home today. stop using marijuana pt can follow with [facility] in 1-2 months. not much to add at this point. please call again if new question. Dr. Jone Rivas MD [facility] Neurology Chief Complaint: seizure History of Present Illness: HPI: pt with seizure event. doing well currently. CT head negative. chart reviewed. Admission/Initial HPI documentation: Page Zendejas is a 36-year-old female with a past medical history of cervical intraepithelial neoplasia 2, depression/anxiety, migraine, history of substance abuse on Suboxone, learning disability, tobacco use, hyperlipidemia who presented for concerns of seizure. While in the ER she had a observed seizure with postictal somnolence, was treated with Ativan and subsequently loaded with Keppra. Page is seen at the bedside. She is somnolent but awakens easily answers questions before falling back asleep. Denies pain. Reports she is never had a seizure before. Endorses that she takes medical marijuana for anxiety and pain, denies pain at bedside. She obtains her marijuana from a dispensary and uses a smoked formulation. She also takes Lexapro which she did take this morning. She does not remember having a seizure this morning or in the ER. She denies weakness numbness/tingling and denies headache. 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 She denies fevers, chills, sweats, recent illness, cough, nausea, vomiting. Denies family history of seizure, exam somewhat limited due to somnolence. Reports she does not want anyone called for collateral history. Denies recreational drug use or other substance use. Does not use alcohol, smokes cigarettes and reports 1 pack lasts her "a while "but does not quantify in days. Past Medical History: See chart Meds: See chart I personally reviewed all of the medications Social & Family History: See chart Review of Systems: Per initial HPI on admission. Physical Exam: GEN: NAD HEENT: Normocephalic Neuro: Mental status:A & O x 3.No dysarthria or aphasia.No neglect. Fluent speech. No apraxia Cranial Nerves:II-XII intact Motor:Normal bulk and tone,5/5 strength x 4 extremities Coordination:Intact Reflexes:+2 throughout, down going toes humberto Sensation: Intact x 4 extremities to touch Chart reviewed I have spent more than 50% educating patient about potential diagnosis and neurological evaluation and coordinating care with patient's treatment team. Total time spent (including chart review and coordination of care): 80 min (this includes chart review). History of Present Illness Attending Physician: Karlos Pires MD Allergies Allergy/AdvReac Type Severity Reaction Status Date / Time tramadol AdvReac Intermediate Nausea/Vomi Verified 01/23/22 13:42 ting Home Medications Medication Instructions Recorded Confirmed Type buprenorphine 8 mg-naloxone 2 mg 1 tab sublingual TID 07/14/20 06/02/22 History sublingual tablet escitalopram oxalate 20 mg tablet 20 mg PO DAILY #30 tabs 01/23/22 06/02/22 Rx albuterol sulfate 90 mcg/actuation 2 puff inhalation Q6H PRN 04/02/22 06/02/22 Rx aerosol inhaler (Ventolin HFA) Shortness Of Breath Or Wheezing #8.5 grams omeprazole 20 mg capsule,delayed 20 mg PO BID 06/02/22 History release Patient History Medical History Abdominal pain Asthma using PRN inh daily Chronic back pain COVID-19 vaccine second dose declined pt states that "people scared me about the 2nd shot so I never got the second one" Depression with anxiety GERD (gastroesophageal reflux disease) Hyperlipidemia Kidney stones hx Learning disability Migraine Surgical History History of bilateral tubal ligation History of esophagogastroduodenoscopy (EGD) History of hysterectomy History of tooth extraction all top teeth/most lower teeth History of umbilical hernia repair Family History Other Endometriosis No family history of adverse response to anesthesia Social History Smoking Status: Current every day smoker Tobacco Type: Cigarettes Cigarettes Per Day: 1/2 ppd; Second Hand Exposure: No; Hx Alcohol Use: Yes Hx Substance Use: Yes Last Used Substance Other:: addicted to percocet (street)-went into clinic now on suboxone Preferred Language: Tajik Communication Ability: Effective Superintendent Tests Required: No Beliefs That Will Affect Care: None Current Living Situation: Alone Current Living Situation Comment: lives with her children Feels Safe at Home: Yes Safety Concerns: Feels Safe At This Time caffeine: Yes Dental Care, Regularly: No Physical Activity Frequency: Daily Seatbelt Use: always Sunscreen Use: No Assistive Devices: None, Denture - Upper and Denture - Lower Results & Data ([facility]) Vital Signs (Past 12 Hours) Vital Signs Temp Pulse Resp BP Pulse Ox O2 Del Method 06/03/22 08:14 36.8 C 55 L 20 102/61 96 Room Air 06/03/22 02:48 36.9 C 55 L 18 110/61 96 Room Air
--- NOTE | 2022-06-03 15:14 | Discharge Summary ---
Date of Service June 03, 2022 Admission HPI Per Admitting Provider Page Zendejas is a 36-year-old female with a past medical history of cervical intraepithelial neoplasia 2, depression/anxiety, migraine, history of substance abuse on Suboxone, learning disability, tobacco use, hyperlipidemia who presented for concerns of seizure. While in the ER she had a observed seizure with postictal somnolence, was treated with Ativan and subsequently loaded with Keppra. Page is seen at the bedside. She is somnolent but awakens easily answers questions before falling back asleep. Denies pain. Reports she is never had a seizure before. Endorses that she takes medical marijuana for anxiety and pain, denies pain at bedside. She obtains her marijuana from a dispensary and uses a smoked formulation. She also takes Lexapro which she did take this morning. She does not remember having a seizure this morning or in the ER. She denies weakness numbness/tingling and denies headache. 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 She denies fevers, chills, sweats, recent illness, cough, nausea, vomiting. Denies family history of seizure, exam somewhat limited due to somnolence. Reports she does not want anyone called for collateral history. Denies recreational drug use or other substance use. Does not use alcohol, smokes cigarettes and reports 1 pack lasts her "a while "but does not quantify in days. Medical History: Reviewed Medications: Reviewed Surgical History: Reviewed Allergies: Reviewed Social History: Medical marijuana, current smoker, does not use alcohol. Denies recreational drug use, is currently on Suboxone 3 times daily Code Status: Full code Principal Diagnosis Possible seizure Substance abuse with cannabis For contusion Discharge Exam Patient has a right fourth contusion the bruising is slight is tender to examination. She is awake alert appropriate otherwise. Neurological exam is intact. Discharge Data Allergies Allergy/AdvReac Type Severity Reaction Status Date / Time tramadol AdvReac Intermediate Nausea/Vomi Verified 01/23/22 13:42 ting Consultations 06/02/22 12:49 ED Decision to Admit Stat 06/03/22 07:47 Consult Neurology Routine Ordered Studies 06/02/22 06:35 CT head/brain wo con Urgent Hospital Course (1) Seizure: 36-year-old female the past medical history of migraine, medical marijuana use, tobacco use, anxiety/depression, Lexapro, Suboxone treatment who presented with 1 seizure at home and a second seizure observed while in the ER with tonic/clonic activity. Seizure x2, new CThead normal 1 observed seizure in the ER aborted with lorazepam 2 mg Loaded with Keppra 1 g Neurology has seen the patient does not recommend discontinuing antidepressants. Recommend continue Keppra 500 twice daily outpatient neurology work-up including EEG and MRI at the prevents of the outpatient neurologist Depression/anxiety Continue Lexapro 20 mg. This was restarted 01/2022 Substance use disorder Past history of chronic use of Percocet/Vicodin [facility], on [facility]oxone Continue Suboxone 3 times daily -thc seen in tox screen recommending not continuing marijuana at this point time Hyperlipidemia Followed as outpatient, no acute management History of wheezing 1 pack/day per outpatient record review, no wheezing on intake exam Albuterol as needed if needed No signs of acute COPD/exacerbation counseled on smoking cessation CODE STATUS: Full code (2) Depression with anxiety: (3) Smoking addiction: (4) Hyperlipidemia: Total Time Total Time Spent Total Time Spent (In Minutes): It required greater than 30 minutes to prepare this patient for discharge Discharge Plan Discharge Items Patient Disposition: Home - Self-Care Reason For Visit: SEIZURE X2 Discharge Diagnosis: seizure Activity: Per Instructions section Activity Comment: do not drive or operate eqipment for at least 6 months and then be cleared Non-emergency contact: Primary Care Provider and Neurologist Call non-emergency contact if: your symptoms worsen Follow-up/Referrals: Matthew Bolivar MD [Primary Care Provider] - Rj Carter MD [Physician] - Diet: Regular Addtl Attending Provider Instructions: please take medication to reduce seizures twice a day please do not use Marijuana no driving for 6 months and then if seizure free please discuss with your primary care if you can return to driving Pending Studies at Discharge: No Stand-Alone Forms: My [employer], Smoking Cessation Medications and DC Order Prescriptions: New levetiracetam [Keppra] 500 mg Tablet 500 mg PO BID Qty: 60 5RF Continued albuterol sulfate [Ventolin HFA] 90 mcg/actuation HFA aerosol inhaler 2 puff inhalation Q6H PRN (Reason: Shortness Of Breath Or Wheezing) Qty: 8.5 3RF escitalopram oxalate 20 mg tablet 20 mg PO DAILY Qty: 30 5RF buprenorphine-naloxone 8-2 mg tablet, sublingual 1 tab SUBLINGUAL TID omeprazole 20 mg capsule,delayed release(DR/EC) 20 mg PO BID Rx Instructions: TAKE 1 CAPSULE BY MOUTH TWICE A DAY Discharge Orders: Discharge Order (Routine); Ordered 06/03/22 Ordered By: Karlos Mehta/Other Patient Handouts: Epilepsy Seizure Affects on Body, Seizure New Unk Cause Adult Admission Data Admit Date/Time: 06/02/22 12:50 Attending Provider: Karlos Pires Admit Provider: Omero Pizano Primary Care Provider: Matthew Bolivar Other Providers: Omero Pizano ; Jone Rivas Other Interventions: Discharge Summary Assessment (RN) Last Done: 06/03/22 12:37 Coding Level of Care Code HOSP INP/OBS DISCH >30 MIN Diagnoses Seizure R56.9 Depression with anxiety F41.8 Smoking addiction F17.200 Hyperlipidemia E78.5
[2022-06-04 00:28] LABS: Marijuana Quant, GCMS Urine 1558 ng/mL (<5)
== END 2022-06-03 13:05 | disposition home or self-care (01) | DRG 101 ==
LOC: ED 06:32 → 2E 12:50 → SUATTDRO 12:50 → 2E 14:00